=== PATIENT | female | born 1960 | race Two or more races ===

== ENCOUNTER 2020-01-22 11:00 | Inpatient (IN) | payer OTHER ==
[~2020-01-22] VITALS: Ht 61 cm; Wt 5.0 kg
[2020-01-22] MEDS ORDERED: SYNTHROID88 MCG PO (13:46)
[2020-01-22] MEDS ORDERED: TRILEPTAL150 MG PO (13:47)
[2020-01-22] MEDS ORDERED: LEXAPRO20 MG PO (13:47)
[2020-01-22] MEDS ORDERED: LOSARTAN POTASS50 MG PO (13:47)
[2020-01-29] MEDS ORDERED: CLONAZEPAM0.5 MG PO (07:53)
[2020-01-29] MEDS ORDERED: RESTORIL30 MG PO (07:54)
[2020-01-29] MEDS ORDERED: PIROXICAM20 MG PO (07:54)
[2020-01-29] MEDS ORDERED: ADVIL200 MG (07:55)
[2020-01-29] MEDS ORDERED: OMEPRAZOLE20 MG PO (10:32)
[2020-01-29] MEDS ORDERED: ENSURE LIQUID237 ML (10:33)
[2020-01-31] MEDS ORDERED: GAS RELIEF 8080 MG PO (16:02)
[2020-01-31] MEDS ORDERED: CARAFATE1 GM/10 ML PO (16:03)
[2020-01-31] MEDS ORDERED: PEPCID AC20 MG PO (16:04)
[2020-01-31] MEDS ORDERED: POLY119PG PO (16:04)
[2020-01-31] MEDS ORDERED: ULTRACET PO (16:05)
== END 2020-01-31 17:21 | disposition home or self-care (01) | DRG 328 ==
LOC: EDSTATUS 11:00 → ADM 11:00 → SURH 01-29 05:40 → O/R 01-29 05:40 → SURH 01-29 08:15 → MEDJ 01-31 04:12 → SURH 01-31 06:26
PROVIDERS: ADMIT Surgery; ATTEND Surgery
PROC: 0D844ZZ Division of Esophagogastric Junction, Percutaneous Endoscopic Approach (ICD-10-PCS; 2020-01-29)
PROC: 0BQT4ZZ Repair Diaphragm, Percutaneous Endoscopic Approach (ICD-10-PCS; 2020-01-29)
PROC: 0WQF4ZZ Repair Abdominal Wall, Percutaneous Endoscopic Approach (ICD-10-PCS; 2020-01-29)
PROC: 0DV44ZZ Restriction of Esophagogastric Junction, Percutaneous Endoscopic Approach (ICD-10-PCS; principal; 2020-01-29 08:15)
DX: K22.0 Achalasia of cardia (principal); K44.9 Diaphragmatic hernia without obstruction or gangrene; E03.9 Hypothyroidism, unspecified; I10 Essential (primary) hypertension; K42.9 Umbilical hernia without obstruction or gangrene